=== PATIENT | male | born 1965 | race Caucasian/White ===

== ENCOUNTER → 2016-04-01 | Outpatient (CLI) | payer OTHER ==
[~2016-04-01] MED LIST: GENTAMICIN OPTHA3 GM OS; IBUPROFEN600 MG PO; NO HOME MEDICATIONS; NORCO 325 MG-51 TAB PO; NORCO 325 MG-7.1 TAB PO
== END ==
LOC: BHSO 16:13
DX: F33.41 Major depressive disorder, recurrent, in partial remission (principal)

== ENCOUNTER → 2016-06-28 | Outpatient (REF) ==
[2016-06-28 17:02] LABS: THYROID STIMULATING HORMONE 4.76 uIU/mL (0.465-4.680)
[2016-06-28 17:28] LABS: PSA-TOTAL 0.93 ng/mL (0-4)
== END ==
LOC: ZLAB.WCH 16:15
PROVIDERS: Internal Medicine
DX: Z01.89 Encounter for other specified special examinations (principal)
CPT/HCPCS: G0103

== ENCOUNTER → 2017-04-18 | Outpatient (REF) ==
[2017-04-18 20:21] LABS: THYROID STIMULATING HORMONE 5.9 uIU/mL (0.465-4.680)
[2017-04-18 21:25] LABS: PSA-TOTAL 1.28 ng/mL (0-4)
== END ==
LOC: ZLAB.WCH 18:28
PROVIDERS: Internal Medicine
DX: Z01.89 Encounter for other specified special examinations (principal)
CPT/HCPCS: G0103

== ENCOUNTER 2017-06-04 06:24 | Day surgery (SDC) | payer BC ==
[~2017-06-04] VITALS: Ht 193 cm; Wt 121.5 kg
[2017-06-04] MEDS ORDERED: WELLBUTRIN XL300 M1 PO (07:08)
[2017-06-04] MEDS ORDERED: SYNTHROID0.075 MG/T PO (07:08)
[2017-06-04 07:14] VITALS: BP 118/82; PULSE 63; TEMP 96.8
[2017-06-04 08:25] VITALS: BP 131/83; PULSE 58
[2017-06-04 08:40] VITALS: BP 121/85; PULSE 60
[2017-06-04 08:55] VITALS: BP 120/77; PULSE 68
[2017-06-04 08:59] VITALS: BP 124/73; PULSE 77
== END 2017-06-04 09:10 | disposition home or self-care (01) ==
LOC: SDCO 06:24
DX: Z12.11 Encounter for screening for malignant neoplasm of colon (principal); K57.30 Diverticulosis of large intestine without perforation or abscess without bleeding
CPT/HCPCS: OP; J2250; J2405; J3010; J7030

== ENCOUNTER → 2018-04-28 | Outpatient (REF) | LOC: ZLAB.WCH 16:21 | DX: Z01.89 Encounter for other specified special examinations (principal) ==